=== PATIENT | male | born 1985 | race Two or more races ===

== ENCOUNTER 2017-06-29 15:38 | Emergency (ER) | payer SELFPAY ==
[~2017-06-29] VITALS: Ht 154.9 cm; Wt 68.0 kg
--- NOTE | 2017-06-29 15:51 | Emergency Room Report ---
History of Present Illness General Chief Complaint: General Complaint Source: Patient (Manpreet Cavanaugh) Present Illness HPI 31 yo male patient presents to ER complaining of tingling in his left arm since this morning. Patient reports that his arm feels like "it feel asleep". Patient states sensation in arm did not wake him up from sleep. Denies history of trauma to arm. Patient states that he smoked weed with family member earlier in the day to treat symptoms. Reports marijuana did not alleviate symptoms and became concerned that it could be more serious condition so decided to report to ER. Patient reports symptoms are still present but have lessened. Patient reports a history of anxiety and stress related to money and paying rent. Patient denies fever, nausea, vomiting, chest pain, SOB (Manpreet Cavanaugh) Allergies: Coded Allergies: No Known Allergies (Unverified , 06/29/17) Patient History Past Medical History: see triage record Pertinent Family History: none Social History: Reports: drug use - marijuana Reviewed Nursing Documentation: PMH: Agreed, PSxH: Agreed (Manpreet Cavanaugh) Nursing Documentation-PMH Past Medical History: No Stated History (Manpreet Cavanaugh) Review of Systems All Other Systems: negative except mentioned in HPI (Manpreet Cavanaugh) Physical Exam Vital Signs Date Time Temp Pulse Resp B/P (MAP) Pulse Ox O2 Delivery O2 Flow Rate FiO2 06/29/17 15:43 98.1 82 18 140/94 99 Room Air Sp02 EP Interpretation: reviewed, normal General Appearance: no apparent distress, alert, GCS 15, non-toxic Head: normocephalic, atraumatic Eyes: bilateral eye normal inspection, bilateral eye PERRL ENT: hearing grossly normal, normal pharynx, no angioedema, normal voice Respiratory: chest non-tender, lungs clear, normal breath sounds, no respiratory distress, no accessory muscle use, speaking full sentences Cardiovascular #1: regular rate, rhythm, no edema Cardiovascular #2: 2+ carotid (R), 2+ carotid (L), 2+ radial (R), 2+ radial (L) Musculoskeletal: back normal, gait/station normal, normal range of motion, non- tender, calf tenderness, other - NVI, "tingling sensation" with elbow extension Neurologic: alert, oriented x3, responsive, motor strength/tone normal, sensory intact, speech normal Psychiatric: mood/affect normal Skin: normal color, no rash, warm/dry, well hydrated Lymphatic: no adenopathy (Manpreet Cavanaugh) Medical Decision Making PA Attestation Dr. Wheeler is my supervising physician with whom patient management has been discussed with. (Manpreet Cavanaugh) Diagnostic Impression: Primary Impression: Tingling of left upper extremity ER Course Pt. presents to the ED c/o left arm tingling. Ddx considered but are not limited to nerve irritation, strain, sprain, cardiac arrhythmia. Vital signs: are WNL, pt. is afebrile. ORDERS: EKG ordered, shows no acute ST segment elevation or depression. ED INTERVENTIONS: None required at this time. DISCHARGE: -Rx provided for Ibuprofen for pain symptoms. At this time pt. is stable for d/c to home. Patient reports symptom improvement since onset. Will provide printed patient care instructions, and any necessary prescriptions. Patient instructed to follow with primary care provider in 3 - 5 days and to discuss further cardiac follow-up. Care plan and follow up instructions have been discussed with the patient prior to discharge. Take medications as directed. Patient questions asked and answered. ER precautions given, patient instructed to return to ER immediately for any new or worsening of symptoms. (Manpreet Cavanaugh) EKG Diagnostic Results EKG Time: 16:13 Rate: normal Rhythm: NSR ST Segments: no acute changes Other Impression Normal sinus rhythm with sinus arrhythmia Rightward axis Borderline ECG PA Scribe Text Frankie Cavanaugh PA-C (Manpreet Cavanaugh P.A.) Rhythm Strip Diag. Results Rhythm Strip Time: 16:13 EP Interpretation: yes Rate: 72 Rhythm: NSR, no PVC's, no ectopy PA Scribe Text Frankie Cavanaugh PA-C (Manpreet Cavanaugh P.A.) Last Vital Signs Date Time Temp Pulse Resp B/P (MAP) Pulse Ox O2 Delivery O2 Flow Rate FiO2 06/29/17 15:43 98.1 82 18 140/94 99 Room Air (Manpreet Cavanaugh P.A.) Last Vital Signs Date Time Temp Pulse Resp B/P (MAP) Pulse Ox O2 Delivery O2 Flow Rate FiO2 06/29/17 17:31 98.1 75 18 122/71 100 Room Air Status: improved (Alok Wheeler M.D.) Disposition: HOME, SELF-CARE Condition: Stable Scripts Ibuprofen* (MOTRIN*) 600 Mg Tablet 600 MG ORAL Q8H Y for For Pain, #30 TAB 0 Refills Prov: Manpreet Cavanaugh 06/29/17 Patient Instructions: Angina Pectoris, [id number] Additional Instructions: Followup with primary care provider in 3 -5 days. Discuss further workup and evaluation for arm tingling and complete physical. Provided with list of clinics to establish care. Patient questions asked and answered. ER precautions given, patient instructed to return to ER immediately for any new or worsening of symptoms including but not limited to fever, chest pain, SOB. Manpreet Cavanaugh Jun 29, 2017 15:51 Alok Wheeler M.D. Jul 04, 2017 10:19
[2017-06-29 16:01] VITALS: BP 132/88
[2017-06-29] MEDS ORDERED: IBUPROFEN600 MG ORAL (17:18)
[2017-06-29 17:31] VITALS: BP 122/71
--- NOTE | 2017-07-14 14:04 | Cardiology Report ---
APPROVED REPORT EKG Measurement Heart [id number] Normal sinus rhythm with sinus arrhythmia Rightward axis Borderline ECG
== END 2017-06-29 17:55 | disposition home or self-care (01) ==
LOC: EMR 16:24
DX: R20.2 Paresthesia of skin (principal); F12.90 Cannabis use, unspecified, uncomplicated
CPT/HCPCS: 93005; 99283